=== PATIENT | female | born 1985 | race Caucasian/White ===

== ENCOUNTER 2017-02-12 01:32 | Emergency (ER) | payer OTHER ==
[2017-02-12 01:37] VITALS: RESP 18; TEMP 98
[2017-02-12] MEDS ORDERED: METOCLOPRAMIDE 5 MG/ML 2 ML VIAL IVP STA (02:07)
[2017-02-12] MEDS ORDERED: SODIUM CHLORIDE 0.9% 1,000 ML IV ONE (02:07)
--- NOTE | 2017-02-12 02:09 | ED ---
General Adult HPI - General Chief complaint: Abdominal Pain Stated complaint: constipation, 10 wks Time Seen by Provider: 02/12/17 01:51 Source: patient, RN notes reviewed Mode of arrival: ambulatory Limitations: no limitations - History of Present Illness Initial comments: Patient is a 31-year-old female presents emergency room for evaluation of abdominal pain, nausea and constipation. Patient states she's about 10 weeks . Patient is . Patient states she follows up with [employer], Dr. Sierra. Patient states she does have a normal confirmed by ultrasound. Patient states that she has not had a bowel movement in 2 days. Patient states tonight she began having worsening abdominal cramping. Patient states she feels like she has to have a bowel movement but is not able to get anything out. Patient states because of the pain she began vomiting. Patient states the pain comes in waves. Patient denies any vaginal bleeding. Patient denies pain or burning during urination, trouble urinating or blood in urine. Patient denies chest pain or shortness of breath. Patient denies headache or dizziness. - Related Data Home Medications Medication Instructions Recorded Confirmed #79/Iron Asp Gly/FA#1 1 each PO DAILY 02/12/17 02/12/17 [Prenate Elite Tablet] Allergies Allergy/AdvReac Type Severity Reaction Status Date / Time No Known Allergies Allergy Verified 02/12/17 01:37 Review of Systems ROS Statement: Those systems with pertinent positive or pertinent negative responses have been documented in the HPI. ROS Other: All systems not noted in ROS Statement are negative. Past Medical History Past Medical History: No Reported History History of Any Multi-Drug Resistant Organisms: None Reported Past Surgical History: No Surgical Hx Reported Past Psychological History: No Psychological Hx Reported Smoking Status: Never smoker Past Alcohol Use History: None Reported Past Drug Use History: None Reported General Exam - General Exam Comments Initial Comments: Laying in position in exam room. Limitations: no limitations General appearance: alert, anxious Head exam: Present: atraumatic, normocephalic, normal inspection Eye exam: Present: normal appearance ENT exam: Present: normal exam Neck exam: Present: normal inspection Respiratory exam: Present: normal lung sounds bilaterally. Absent: respiratory distress Cardiovascular Exam: Present: regular rate, normal rhythm, normal heart sounds GI/Abdominal exam: Present: soft, tenderness, normal bowel sounds. Absent: distended, guarding, rebound, rigid Extremities exam: Present: normal inspection Back exam: Present: normal inspection Neurological exam: Present: alert, oriented X3, CN II-XII intact, normal gait Psychiatric exam: Present: normal affect, normal mood Skin exam: Present: warm, dry, intact, normal color. Absent: rash Course Vital Signs 02/12/17 01:35 Temperature 98.0 F Pulse Rate 70 Respiratory 18 Rate Blood Pressure 154/7 O2 Sat by Pulse 100 Oximetry Medical Decision Making - Medical Decision Making Patient is a 31-year-old female presents emergency room for evaluation of constipation and nausea. Patient states then better after fluids and antinausea medication given. ultrasound: IUP corresponding to EGA a of 11 weeks and 3 days. Positive cardiac activity. Both ovaries seen and appear within normal limits. Patient states after ultrasound she was able to have a small bowel movement and is feeling better. Offered patient Therevac enema. Patient states that she will try that at home. States that her abdominal pain has subsided. Advised patient to follow up with her [employer]UCATION [employer] or primary care provider. Advised patient to drink plenty of water. Patient states she understands everything that was discussed with her. Return parameters discussed. Case discussed with Dr. Moore. - Lab Data Result diagrams: 02/12/17 02:33 02/12/17 02:33 Lab Results 02/12/17 02/12/17 02/12/17 Range/Units 02:33 02:33 02:33 WBC 11.5 H (3.8-10.6) k/uL RBC 4.01 (3.80-5.40) m/uL Hgb 13.2 (11.4-16.0) gm/dL Hct 37.1 (34.0-46.0) % MCV 92.5 (80.0-100.0) fL MCH 32.8 (25.0-35.0) pg MCHC 35.5 (31.0-37.0) g/dL RDW 12.0 (11.5-15.5) % Plt Count 288 (150-450) k/uL Neutrophils % 71 % Lymphocytes % 19 % Monocytes % 6 % Eosinophils % 1 % Basophils % 0 % Neutrophils # 8.2 H (1.3-7.7) k/uL Lymphocytes # 2.2 (1.0-4.8) k/uL Monocytes # 0.7 (0-1.0) k/uL Eosinophils # 0.1 (0-0.7) k/uL Basophils # 0.1 (0-0.2) k/uL Sodium 137 (137-145) mmol/L Potassium 3.8 (3.5-5.1) mmol/L Chloride 105 (98-107) mmol/L Carbon Dioxide 23 (22-30) mmol/L Anion Gap 9 mmol/L BUN 11 (7-17) mg/dL Creatinine 0.60 (0.52-1.04) mg/dL Est GFR (MDRD) Af Amer >60 (>60 ml/min/1.73 sqM) Est GFR (MDRD) Non-Af >60 (>60 ml/min/1.73 sqM) Glucose 93 (74-99) mg/dL Calcium 9.7 (8.4-10.2) mg/dL Total Bilirubin 0.4 (0.2-1.3) mg/dL AST 22 (14-36) U/L ALT 35 (9-52) U/L Alkaline Phosphatase 37 L (38-126) U/L Total Protein 7.1 (6.3-8.2) g/dL Albumin 4.2 (3.5-5.0) g/dL Amylase 56 (30-110) U/L Lipase 29 (23-300) U/L Urine Color Yellow Urine Appearance Clear (Clear) Urine pH 6.0 (5.0-8.0) Ur Specific [place] 1.018 (1.001-1.035) Urine Protein Negative (Negative) Urine Glucose (UA) Negative (Negative) Urine Ketones 1+ H (Negative) Urine Blood Negative (Negative) Urine Nitrite Negative (Negative) Urine Bilirubin Negative (Negative) Urine Urobilinogen <2.0 (<2.0) mg/dL Ur Leukocyte Esterase Negative (Negative) - Radiology Data Radiology results: report reviewed, image reviewed Disposition Clinical Impression: Constipation during Disposition: HOME SELF-CARE Condition: Good Instructions: Constipation (ED), High Fiber Diet (ED) Additional Instructions: High-fiber diet. Drink plenty of water. Use Therevac as needed. Please follow up with primary care provider or [employer]UCATION [employer]CTOR in 1-2 days. If any new symptom arises or symptoms worsen, return to ER as soon as possible. Referrals: None,Stated [Primary Care Provider] - 1-2 days Time of Disposition: 03:45
[2017-02-12 02:53] LABS: Basophils # (A) 0.1 k/uL (0-0.2); Basophils % (A) 0 %; CH 32.9; CHCM 35.7; Eosinophils # (A) 0.1 k/uL (0-0.7); Eosinophils % (A) 1 %; HCT 37.1 % (34.0-46.0); HDW 2.18; HGB 13.2 gm/dL (11.4-16.0); Luc # (Auto) 0.29; Luc % (Auto) 3; Lymphocytes # (A) 2.2 k/uL (1.0-4.8); Lymphocytes % (A) 19 %; MCH 32.8 pg (25.0-35.0); MCHC 35.5 g/dL (31.0-37.0); MCV 92.5 fL (80.0-100.0); Mean Platelet Volume 6.8; Monocytes # (A) 0.7 k/uL (0-1.0); Monocytes % (A) 6 %; Neutrophils # (A) 8.2 k/uL (1.3-7.7); Neutrophils % (A) 71 %; RBC 4.01 m/uL (3.80-5.40); WBC 11.5 k/uL (3.8-10.6)
[2017-02-12 03:02] LABS: ALT 35 U/L (9-52); AST 22 U/L (14-36); Alkaline Phosphatase 37 U/L (38-126); Amylase 56 U/L (30-110); Anion Gap 9 mmol/L; Blood Urea Nitrogen 11 mg/dL (7-17); Calcium 9.7 mg/dL (8.4-10.2); Carbon Dioxide 23 mmol/L (22-30); Chloride 105 mmol/L (98-107); Glucose 93 mg/dL (74-99); Non-African American GFR(MDRD) >60 (>60 ml/min/1.73 sqM); Potassium 3.8 mmol/L (3.5-5.1); Sodium 137 mmol/L (137-145); Total Bilirubin 0.4 mg/dL (0.2-1.3); Total Protein 7.1 g/dL (6.3-8.2)
--- NOTE | 2017-02-12 03:05 | US ---
EXAM: US First Trimester, Transabdominal. CLINICAL HISTORY: Reason: Pain TECHNIQUE: Real-time transabdominal obstetrical ultrasound of the maternal pelvis and a first trimester with image documentation. COMPARISON: No relevant prior studies available. FINDINGS: Gestation: Intrauterine gestational sac is identified containing an embryo with crown-rump length of 4.59 cm corresponding to EGA of 11 weeks and 3 days. Yolk sac is visualized. Heart rate is 174 bpm. Placenta/amniotic fluid: Cannot be adequately evaluated due to the early gestational age. Uterus/cervix: Uterus measures 7.8 x 7.1 x 8.4 cm. No myometrial mass. Ovaries: Right ovary measures 1.7 x 1.1 x 1.4 cm. Left ovary measures 2.2 x 1.8 x 1.4 cm. No mass. Free fluid: No significant free fluid. IMPRESSION: IUP corresponding to EGA of 11 weeks and 3 days. Positive cardiac activity. Both ovaries seen and appear within normal limits
[2017-02-12 03:30] LABS: Appearance,Urine Clear (Clear); Bilirubin,Urine Negative (Negative); Glucose,Urine (UA) Negative (Negative); Ketones,Urine 1+ (Negative); Leukocyte Esterase,Urine Negative (Negative); Nitrite,Urine Negative (Negative); Protein,Urine Negative (Negative); Specific Gravity,Urine 1.018 (1.001-1.035); UA Billing (MACRO vs. MICRO) CHEM; Urobilinogen,Urine <2.0 mg/dL (<2.0)
[2017-02-12] MEDS ORDERED: DOCUSATE 283 MG/5 ML ENEMA RECTAL STA (03:31)
[2017-02-12 04:29] VITALS: BP 106/67; PULSE 65
== END 2017-02-12 04:20 | disposition home or self-care (01) ==
LOC: EC 01:32
DX: O99.611 Diseases of the digestive system complicating pregnancy, first trimester (principal); K59.00 Constipation, unspecified; Z3A.11 11 weeks gestation of pregnancy; Z79.899 Other long term (current) drug therapy
CPT/HCPCS: 36415; 80053; 82150; 83690; 85025; 81003; 76813; 76801; 99284; 96374; 96361; J2765